=== PATIENT | female | born 1960 | race Caucasian/White ===

== ENCOUNTER 2016-12-17 06:16 | Observation (INO) | payer OTHER ==
[~2016-12-17] VITALS: Ht 149.9 cm; Wt 67.6 kg
[2016-12-17] MEDS ORDERED: LIDOCAINE 1%, 2ML ONE (06:40)
[2016-12-17] MEDS ORDERED: GABAPENTIN 300 MG CAPSULE PO STA (06:54)
[2016-12-17] MEDS ORDERED: ACETAMINOPHEN 500 MG TABLET PO STA (06:54)
[2016-12-17] MEDS ORDERED: LACTATED RINGERS 1,000 ML IV SCH (06:56)
[2016-12-17] MEDS ORDERED: LIDOCAINE 1%, 2ML SQ PRN (07:00)
[2016-12-17] MEDS ORDERED: MULT-6 PO (07:00)
[2016-12-17] MEDS ORDERED: CHOL5000 PO (07:00)
[2016-12-17] MEDS ORDERED: ASPI-496 PO (07:00)
[2016-12-17] MEDS ORDERED: METF850T2 PO (07:00)
[2016-12-17 07:02] VITALS: BP 166/100
[2016-12-17] MEDS ORDERED: FENTANYL PF 250 MCG/5ML ONE (07:08)
[2016-12-17] MEDS ORDERED: MIDAZOLAM 1 MG/ML, 2ML ONE (07:08)
[2016-12-17 07:25] LABS: ASPARTATE AMINO TRANSFERASE 14 U/L (15-37); BLOOD UREA NITROGEN 16 mg/dL (7-18)
[2016-12-17] MEDS ORDERED: MIDAZOLAM 1 MG/ML, 2ML IV PRN (07:30)
[2016-12-17] MEDS ORDERED: ONDANSETRON 2MG/ML, 2ML IVPush PRN ×2 (07:30→09:30)
[2016-12-17] MEDS ORDERED: MEPERIDINE/PF 25MG/0.5ML IVPush PRN (07:30)
[2016-12-17] MEDS ORDERED: ACETAMINOPHEN 325 MG TABLET PO PRN (07:30)
[2016-12-17] MEDS ORDERED: LABETALOL 5MG/ML, 20ML IV PRN (07:30)
[2016-12-17] MEDS ORDERED: PROMETHAZINE 25 MG/ML, 1ML IV PRN (07:30)
[2016-12-17] MEDS ORDERED: hydrALAzine 20 MG/ML, 1ML IV PRN (07:30)
[2016-12-17] MEDS ORDERED: OXYcodone 5 MG/5 ML ORAL.SOL UDC PO PRN (07:30)
[2016-12-17] MEDS ORDERED: FENTANYL PF 100 MCG/2ML IV PRN (07:30)
[2016-12-17] MEDS ORDERED: ALBUTEROL SULFATE 2.5 MG/3 ML NPPB PRN (07:30)
[2016-12-17 08:56] LABS: IOPTH BASELINE 145 pg/mL; SAMPLE 5 %DROP IOPTH 96 %
[2016-12-17] MEDS ORDERED: ACETAMINOPHEN 650 MG/20.3 ML UDC ONE (09:16)
[2016-12-17] MEDS ORDERED: HYDROmorphone 1 MG/ML, 1ML ONE (09:16)
[2016-12-17] MEDS ORDERED: OXYcodone 5 MG/5 ML ORAL.SOL UDC ONE (09:16)
[2016-12-17] MEDS ORDERED: FENTANYL PF 100 MCG/2ML ONE (09:16)
[2016-12-17] MEDS: HYDROmorphone 1 MG/ML, 1ML IV PRN ×2 (09:25→09:45)
[2016-12-17] MEDS ORDERED: HYDROmorphone 1 MG/ML, 1ML IV PRN (09:30)
[2016-12-17] MEDS ORDERED: OXYcodone/APAP 5/325MG TABLET PO PRN (09:30)
[2016-12-17] MEDS ORDERED: DIPHENHYDRAMINE 25 MG CAPSULE PO PRN (09:30)
[2016-12-17] MEDS ORDERED: DIPHENHYDRAMINE 50 MG/ML, 1ML IV PRN (09:30)
[2016-12-17] MEDS ORDERED: ROCURONIUM 10 MG/ML ONE (10:51)
[2016-12-17] MEDS ORDERED: ONDANSETRON 2MG/ML, 2ML ONE (10:51)
[2016-12-17] MEDS ORDERED: SUCCINYLCHOLINE 20 MG/ML, 10ML ONE (10:51)
[2016-12-17] MEDS ORDERED: CEFAZOLIN 1,000 MG ONE (10:51)
[2016-12-17] MEDS ORDERED: DEXAMETHASONE 4 MG/ML, 1ML ONE (10:51)
[2016-12-17] MEDS ORDERED: PROPOFOL 10 MG/ML, 20ML ONE (10:51)
[2016-12-17 10:57] VITALS: BP 131/79
[2016-12-17] MEDS: POTASSIUM CHLORIDE 20 MEQ in LACTATED RINGERS 1,000 ML IV SCH ×2 (12:20→21:12)
[2016-12-17] MEDS: CALCIUM CARBONATE 500 MG TAB.CHEW PO SCH ×3 (12:20→21:31)
[2016-12-17] MEDS: INSULIN ASPART 100 UNITS/ML, PEN SQ-INSULIN SCH ×3 (13:31→21:29)
[2016-12-17 14:25] VITALS: BP 119/76
[2016-12-17 18:57] VITALS: BP 130/78
[2016-12-17] MEDS: metFORMIN 850 MG TABLET PO SCH (21:29)
[2016-12-18 00:20] VITALS: BP 121/72
[2016-12-18] MEDS: POTASSIUM CHLORIDE 20 MEQ in LACTATED RINGERS 1,000 ML IV SCH (04:05)
[2016-12-18 04:50] VITALS: BP 114/75
[2016-12-18] MEDS: INSULIN ASPART 100 UNITS/ML, PEN SQ-INSULIN SCH (07:00)
[2016-12-18] MEDS: CALCIUM CARBONATE 500 MG TAB.CHEW PO SCH (07:40)
[2016-12-18 07:42] VITALS: BP 120/85
[2016-12-18] MEDS: metFORMIN 850 MG TABLET PO SCH (08:48)
[2016-12-18 10:06] LABS: THYROGLOBULIN AB <1.0 IU/mL (0.0-0.9)
[2016-12-18] MEDS ORDERED: OXYC-302 PO (10:59)
[2016-12-18] MEDS ORDERED: LEVO112T2 PO (11:00)
== END 2016-12-18 11:00 | disposition home or self-care (01) ==
LOC: OUT 06:16 → 4NOR 10:30 → OUT 20:45 → INTOOBSV 20:45 → 4NOR 20:45 → DCLOUNGE 12-18 10:50
PROVIDERS: ADMIT Surgery; ATTEND Surgery
DX: E21.0 Primary hyperparathyroidism (principal); E05.20 Thyrotoxicosis with toxic multinodular goiter without thyrotoxic crisis or storm; E04.1 Nontoxic single thyroid nodule; E04.2 Nontoxic multinodular goiter
CPT/HCPCS: 36415; 60240; 60500; 71010; 80053; 82040; 82310; 82962; 83970; 84432; 85025; 86800; 88305; 88307; 88331; 88333; 93005; 95865; 95940; C1760; G0378; J0330; J0690; J1100; J1170; J1200; J1815; J2250; J2405; J2704; J3010; J3480; J3490; J7120; 96374